=== PATIENT | female | born 1950 | race Caucasian/White ===

== ENCOUNTER 2016-11-19 12:27 | Day surgery (SDC) | payer OTHER, BC ==
[~2016-11-19] VITALS: Ht 160 cm; Wt 72.0 kg
[~2016-11-19 12:27] MED LIST: AVAPRO150 MG PO; CRESTOR10 MG PO; NORVASC5 MG PO; SYNTHROID112 MCG PO; TENORMIN50 MG PO
[2016-11-19 13:16] LABS: MCH 29.2 PG (29.0-34.0); MCHC 33.3 G/DL (30.0-36.0); MCV 87.5 FL (83-99); PLATELET COUNT 220 K/uL (156-360); RBC DIS.WIDTH-CV 13.2 % (11.8-14.6); RBC DIS.WIDTH-SD 42.2 % (39-53); RED BLOOD COUNT 3.77 M/uL (3.80-5.20); WHITE BLOOD COUNT 5.7 K/uL (4.1-10.2)
[2016-11-19 13:20] VITALS: BP 157/66
[2016-11-19 14:54] LABS: ANION GAP 14 MEQ/L (2-14); CHLORIDE 109 MEQ/L (99-109); POTASSIUM 4.6 MEQ/L (3.7-5.4); SAMPLE HEMOLYSIS CHECK 0; SAMPLE ICTERIC CHECK 0; SAMPLE LIPEMIA CHECK 0; SODIUM 142 MEQ/L (136-147)
[2016-11-19 14:58] LABS: GFR ESTIMATE (CALCULATED) 12 mL/min/; GLUCOSE 92 mg/dL (70-99); UREA NITROGEN (BUN) 59 mg/dL (9-23)
[2016-11-19] MEDS ORDERED: NORCO 5/3251 TABLET PO (16:39)
[2016-11-19 17:30] VITALS: BP 131/60
[2016-11-19 18:17] VITALS: BP 174/70
== END 2016-11-19 18:20 | disposition home or self-care (01) ==
LOC: SDC 12:27
PROVIDERS: Physician Assistant
PROC: 0WHG43Z Insertion of Infusion Device into Peritoneal Cavity, Percutaneous Endoscopic Approach (ICD-10-PCS; principal; 2016-11-19)
DX: I12.0 Hypertensive chronic kidney disease with stage 5 chronic kidney disease or end stage renal disease (principal); N18.6 End stage renal disease; Z85.3 Personal history of malignant neoplasm of breast; E05.90 Thyrotoxicosis, unspecified without thyrotoxic crisis or storm; N25.81 Secondary hyperparathyroidism of renal origin; E55.9 Vitamin D deficiency, unspecified
CPT/HCPCS: 80048; 85027; 93005; C1750; J0330; J0690; J1100; J1170; J2250; J2405; J2710; J3010; S0020